=== PATIENT | male | born 1995 | race African-American/Black ===

== ENCOUNTER 2022-05-06 20:17 | Emergency (ER) | payer BC, SELFPAY ==
[2022-05-06 20:17] VITALS: BP 123/82; PULSE 75; RESP 16; TEMP 36.2; O2SAT 99
[2022-05-06 20:18] VITALS: BP 123/82; PULSE 75; RESP 16; TEMP 36.2; O2SAT 99; BMI 29.7
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
[2022-05-06] MEDS: cycloBENZAPRine HCl 10 MG Tablet PO (20:35)
[2022-05-06] MEDS: Ibuprofen 400 MG Tablet 800 MG PO (20:35)
[2022-05-06] MEDS: oxyCODONE 5 MG Tablet PO (20:37)
== END 2022-05-06 21:02 | disposition home or self-care (01) ==
LOC: ED 20:55
PROVIDERS: Emergency Provider Emergency Medicine; Visit Provider Emergency Medicine
DX: S16.1XXA Strain of muscle, fascia and tendon at neck level, initial encounter (principal); S39.012A Strain of muscle, fascia and tendon of lower back, initial encounter; V43.52XA Car driver injured in collision with other type car in traffic accident, initial encounter; Y93.89 Activity, other specified; F17.210 Nicotine dependence, cigarettes, uncomplicated
CPT/HCPCS: 99281; 99283